=== PATIENT | female | born 1965 | race Caucasian/White ===

== ENCOUNTER 2019-06-16 15:51 | Emergency (ER) | payer SELFPAY ==
[~2019-06-16] VITALS: Ht 157.5 cm; Wt 74.8 kg
[2019-06-16 16:19] VITALS: BP_SYST 151
[2019-06-16] MEDS ORDERED: AMPICILLIN SODIUM/SULBACTAM NA 3 GM in NS 100 ML IV ONE (18:30)
[2019-06-16] MEDS ORDERED: AMPICILLIN SODIUM/SULBACTAM NA 3 GM VIAL ONE (19:10)
[2019-06-16 20:30] VITALS: BP_SYST 140
== END 2019-06-16 20:30 | disposition home or self-care (01) ==
LOC: SED 15:51
DX: S61.252A Open bite of right middle finger without damage to nail, initial encounter (principal); L03.011 Cellulitis of right finger; W54.0XXA Bitten by dog, initial encounter; Y93.89 Activity, other specified; Y92.89 Other specified places as the place of occurrence of the external cause; Y99.8 Other external cause status
CPT/HCPCS: 36415; 87040; 96365; 99283; J0295